=== PATIENT | male | born 1980 | race Caucasian/White ===

== ENCOUNTER → 2017-08-27 16:10 | Outpatient (CLI) | payer MEDICAID, SELFPAY ==
[2017-08-27 14:29] VITALS: BP 157/101; BMI 35.9
--- NOTE | 2017-08-27 16:13 | EKG12_ITS ---
Test Reason : PALPS Blood Pressure : / mmHG Vent. Rate : 069 BPM Atrial Rate : 069 BPM P-R Int : 164 ms QRS Dur : 092 ms QT Int : 406 ms P-R-T Axes : 041 -25 -03 degrees QTc Int : 435 ms Normal sinus rhythm Leftward axis Confirmed by SANTOSH CRUZ, LUCI ([id number]), editor continuity and script MARINO GALLARDO ([id number]) on 08/29/2017 1:56:24 PM Referred By: GIUSEPPE Confirmed By:LUCI FROST MD
[2017-08-27 17:15] LABS: Microalbumin,Random Urine 23.2 mg/L (NO RANGE EST.); Microalbumin:Creatinine Ratio 8.2 mg/g CRE (<30 mg/g CRE)
[2017-08-27 17:24] LABS: Hemoglobin A1c 5.7 % (4.2-6.3)
[2017-08-27 17:26] LABS: ALB/GLOB Ratio 1.2 RATIO (0.9-2.4); AST(SGOT) 17 U/L (15-37); Alanine Aminotransfer ALT/SGPT 37 U/L (16-61); Albumin, Serum 4.4 g/dL (3.2-5.0); Alkaline Phosphatase 82 U/L (45-117); Anion Gap 9 (5-15); BUN 13 mg/dL (7-18); BUN/Creat Ratio 13.3 RATIO (10-20); Calcium,Total 8.6 mg/dL (8.5-10.1); Chloride 105 mmol/L (98-107); Cholesterol 246 mg/dL (200); Creatinine, Serum 0.98 mg/dL (0.70-1.30); EST Glomerular Filtration Rate 91 mL/min (>60); Est Glom Filt Rate - Afr Amer 110 mL/min (>60); Globulin 3.7 g/dL (2.2-4.2); Glucose 101 mg/dL (74-106); High Density Lipoprotein 49 mg/dL; Protein, Total 8.1 g/dL (6.4-8.2); Sodium Level 139 mmol/L (136-145); Thyroid Stim Hormone (TSH) 0.94 uIU/mL (0.358-3.74); Triglycerides 208 mg/dL; Very Low Density Lipoprotein 42 mg/dL (5-40)
[2017-08-27 17:37] LABS: Absolute Lymphocyte Count 2.12 X10^3/ul (0.83-4.51); Absolute Neutrophil Count 5.3 X10^3/uL (2.0-7.7); Basophil# 0.05 X10^3/uL; Basophil% 0.6 % (0-1); Eosinophil# 0.09 X10^3/uL; Eosinophils% 1.1 % (0-5); Hematocrit 48.8 % (40-54); Hemoglobin 16.1 g/dl (13.0-16.5); Lymphocyte # 2.12 X10^3/ul (4.0); Lymphocyte % 25.9 % (19-41); Mean Corpuscular Hgb 27.5 pg (27.0-32.0); Mean Corpuscular Volume 83.3 fL (80-94); Mean Platelet Vol. 9.4 fl (6.2-12.0); Monocyte# 0.63 X10^3/uL; Monocyte% 7.7 % (0-10); Neutrophil # 5.25 X10^3/uL (2.7-7.7); Neutrophil % 64.3 % (47-70); Platelet Count 292 K/mm3 (150-450); RBC Distribution Width CV 12.8 % (11.6-14.6); RBC Distribution Width SD 38.2 fl (35.1-43.9); Red Blood Count 5.86 M/mm3 (4.6-6.2); White Blood Count 8.2 K/mm3 (4.4-11.0)
[2017-08-27 17:46] LABS: POSITIVE COUNT NO; POSITIVE DIFFERENTIAL NO; POSITIVE MORPHOLOGY NO
== END ==
LOC: RAD 16:11 → CVS 16:12
PROVIDERS: Family Provider Internal Medicine; PCP Internal Medicine; Visit Provider Nurse Practitioner Family
DX: Z13.1 Encounter for screening for diabetes mellitus (principal); I10 Essential (primary) hypertension; E66.9 Obesity, unspecified
CPT/HCPCS: 36415; 80053; 80061; 82043; 82570; 83036; 84443; 85025; 93005

== ENCOUNTER → 2020-06-21 15:47 | Outpatient (CLI) | payer MEDICAID, SELFPAY ==
[2020-06-21 12:38] VITALS: BMI 37.2
[2020-06-21 17:27] LABS: Absolute Lymphocyte Count 2.37 X10^3/uL (0.83-4.51); Absolute Neutrophil Count 5.3 X10^3/uL (2.0-7.7); Basophil# 0.05 X10^3/uL; Basophil% 0.6 % (0-1); Eosinophils% 1.2 % (0-5); Hematocrit 46.5 % (40-54); Lymphocyte # 2.37 X10^3/ul (4.0); Lymphocyte % 27.5 % (19-41); Mean Corp Hgb Conc 32.3 g/dL (32-36); Mean Corpuscular Hgb 27.2 pg (27.0-32.0); Mean Corpuscular Volume 84.2 fL (80-94); Monocyte# 0.76 X10^3/uL; Monocyte% 8.8 % (0-10); NRBC Flagged by Analyzer 0 % (0-5); Neutrophil # 5.27 X10^3/uL (2.7-7.7); Neutrophil % 61.1 % (47-70); Platelet Count 404 K/mm3 (150-450); RBC Distribution Width CV 12.1 % (11.6-14.6); RBC Distribution Width SD 36.6 fl (35.1-43.9); Red Blood Count 5.52 M/mm3 (4.6-6.2); White Blood Count 8.6 K/mm3 (4.4-11.0)
[2020-06-21 18:18] LABS: Vitamin D,25 Hydroxy 64.7 ng/mL
[2020-06-21 18:24] LABS: Anion Gap 5 (5-15); BUN 10 mg/dL (7-18); BUN/Creat Ratio 10.6 RATIO (10-20); Calcium,Total 9.6 mg/dL (8.5-10.1); Chloride 103 mmol/L (98-107); Creatinine, Serum 0.94 mg/dL (0.70-1.30); EST Glomerular Filtration Rate 94 mL/min (>60); Est Glom Filt Rate - Afr Amer 113 mL/min (>60); Glucose 100 mg/dL (74-106); Potassium 3.9 mmol/L (3.5-5.1); Sodium Level 137 mmol/L (136-145); Thyroid Stim Hormone (TSH) 1.15 uIU/mL (0.358-3.74)
== END ==
PROVIDERS: PCP Family Medicine; Visit Provider Internal Medicine Cardiovascular Disease
DX: I10 Essential (primary) hypertension (principal); E78.5 Hyperlipidemia, unspecified
CPT/HCPCS: 36415; 80048; 82306; 84443; 85025

== ENCOUNTER → 2020-06-30 10:55 | Outpatient (CLI) | payer MEDICAID, SELFPAY ==
[2020-06-21 12:38] VITALS: BMI 37.2
--- NOTE | 2020-06-30 10:59 | ECHOD_ITS ---
Reason For Study: ARRHYTHMIA Procedure This was a 2D Doppler, Color Flow transthoracic echocardiogram. Exam performed in department. Left Ventricle Normal LV size. Left ventricular systolic function is normal. The estimated ejection fraction is 60 %. No regional wall motion abnormalities noted. Right Ventricle Normal RV size. Normal systolic function. Atria Normal left atrium. Normal right atrium. Mitral Valve Normal mitral valve. Tricuspid Valve Normal tricuspid valve. Aortic Valve Normal aortic valve. Pulmonic Valve Normal pulmonic valve. Great Vessels Normal aortic root. The pulmonary artery is normal size. Normal inferior vena cava. Pericardium/Pleural No pericardial effusion. MMode/2D Measurements & Calculations LVIDd: 5.0 cm IVSd: 1.1 cm Ao root diam: 3.2 cm LVIDs: 3.6 cm LVPWd: 1.1 cm RVDd: 3.4 cm FS: 28.0 % LAV(MOD-bp): 42.6 ml LA A4 area: 15.2 cm2 LA dimension(2D): 3.6 cm LAV(MOD-bp) Indexed: 20.4 ml/m2 LAV(MOD-sp2): 42.1 ml LAV(MOD-sp4): 35.7 ml RA A4 area: 14.1 cm2 Time Measurements MV dec time: 0.24 sec Doppler Measurements & Calculations MV E max norberto: 86.6 cm/sec Lat Peak E' Norberto: 12.7 cm/sec Med Peak E' Norberto: 10.8 cm/sec MV A max norberto: 78.6 cm/sec E/E' lat: 6.8 E/E' med: 8.0 MV E/A: 1.1 Ao V2 max: 162.6 cm/sec LV V1 max: 120.7 cm/sec PA V2 max: 119.2 cm/sec Ao max P.6 mmHg LV V1 max P.8 mmHg Interpretation Summary Normal LV size. Left ventricular systolic function is normal. The estimated ejection fraction is 60 %. Structurally normal valves. Ordering Physician: Terrell Ryan Referring Physician: DESIRAE PCP Performed By: Princess Feliciano, SOLA, RVT
== END ==
PROVIDERS: Referring Provider Internal Medicine Cardiovascular Disease; Visit Provider Internal Medicine Cardiovascular Disease
DX: I10 Essential (primary) hypertension (principal)
CPT/HCPCS: 93306

== ENCOUNTER → 2020-11-23 08:39 | Outpatient (CLI) | payer MEDICAID, SELFPAY ==
[2020-06-21 12:38] VITALS: BMI 37.2
[2020-11-23 10:09] LABS: Absolute Lymphocyte Count 2.02 X10^3/uL (0.83-4.51); Absolute Neutrophil Count 3.8 X10^3/uL (2.0-7.7); Basophil# 0.09 X10^3/uL; Basophil% 1.3 % (0-1); Eosinophil# 0.09 X10^3/uL; Eosinophils% 1.3 % (0-5); Hemoglobin 16.6 g/dL (13.0-16.5); Lymphocyte # 2.02 X10^3/ul (0.83-4.51); Lymphocyte % 29.6 % (19-41); Mean Corp Hgb Conc 33.2 g/dL (32-36); Mean Corpuscular Hgb 27.6 pg (27.0-32.0); Mean Corpuscular Volume 83.2 fL (80-94); Mean Platelet Vol. 9.1 fl (6.2-12.0); Monocyte# 0.75 X10^3/uL; NRBC Flagged by Analyzer 0 % (0-5); Neutrophil # 3.82 X10^3/uL (2.7-7.7); Neutrophil % 56.1 % (47-70); Platelet Count 391 K/mm3 (150-450); RBC Distribution Width CV 12.1 % (11.6-14.6); RBC Distribution Width SD 36.6 fl (35.1-43.9); Red Blood Count 6.01 M/mm3 (4.6-6.2); White Blood Count 6.8 K/mm3 (4.4-11.0)
[2020-11-23 10:39] LABS: Anion Gap 5 (5-15); BUN 16 mg/dL (7-18); Calcium,Total 9.6 mg/dL (8.5-10.1); Chloride 100 mmol/L (98-107); EST Glomerular Filtration Rate 87 mL/min (>60); Est Glom Filt Rate - Afr Amer 105 mL/min (>60); Glucose 139 mg/dL (74-106); Potassium 4.1 mmol/L (3.5-5.1); Sodium Level 138 mmol/L (136-145)
[2020-11-28 15:06] LABS: Vitamin D 1,25-Dihydroxy 45.5 pg/mL (19.9-79.3)
== END ==
PROVIDERS: Referring Provider Physician Assistant Medical; Visit Provider Physician Assistant Medical
DX: I10 Essential (primary) hypertension (principal); E78.5 Hyperlipidemia, unspecified; E55.9 Vitamin D deficiency, unspecified
CPT/HCPCS: 36415; 80048; 82652; 85025

== ENCOUNTER → 2021-06-21 14:45 | Outpatient (CLI) | payer MEDICAID, SELFPAY ==
[2021-06-21 16:57] LABS: Vitamin D,25 Hydroxy 47.6 ng/mL
[2021-06-21 17:04] LABS: AST(SGOT) 26 U/L (15-37); Alanine Aminotransfer ALT/SGPT 69 U/L (16-61); Albumin, Serum 4.6 g/dL (3.2-5.0); Alkaline Phosphatase 84 U/L (45-117); Bilirubin, Direct 0.18 mg/dL (0.00-0.30); Cholesterol 252 mg/dL (200); Globulin 3.9 g/dL (2.2-4.2); High Density Lipoprotein 44 mg/dL; Protein, Total 8.5 g/dL (6.4-8.2); Thyroid Stim Hormone (TSH) 0.75 uIU/mL (0.358-3.74); Triglycerides 268 mg/dL; Very Low Density Lipoprotein 54 mg/dL (5-40)
== END ==
PROVIDERS: Visit Provider Internal Medicine Cardiovascular Disease
DX: E78.5 Hyperlipidemia, unspecified (principal); E78.00 Pure hypercholesterolemia, unspecified
CPT/HCPCS: 36415; 80061; 80076; 82306; 84443

== ENCOUNTER → 2021-07-11 12:31 | Outpatient (CLI) | payer MEDICAID, SELFPAY ==
--- NOTE | 2021-07-11 12:36 | CT_ITS ---
STUDY: CARDIAC CALCIUM SCORING - CT CHEST REASON FOR EXAM: Male, 41 years old. CAD RADIATION DOSAGE (If Supplied By Facility): CTDIvol = ( 12.19 ) mGy, DLP = ( 243.79 ) mGycm TECHNIQUE: Axial non-enhanced images were acquired through the heart for the sole purpose of measuring coronary artery calcium. Individualized dose optimization techniques were used for this CT. COMPARISON: None. FINDINGS: Visualized surrounding anatomy: 5 mm nodule in the left lower lobe. Fatty liver. Left Main Coronary Artery: 0 Left Anterior Descending Artery: 0 Left Circumflex Artery: 0 Right Coronary Artery: 0 Total Calcium Score: 0 CT/Limited Chest CT w/CCTA IMPRESSION: A Calcium Score of 0 places the patient in the approximate 25th percentile, based on the [employer] data calculator. 5 mm nodule in the left lower lobe. A dedicated chest CT is recommended. Fatty liver. Please go to: [email or web address].[email or web address] , for a description of the calculator. Electronically Signed: Alexei Wu MD at 16:05 EST Tel , Service support ,
[2021-07-11 12:40] VITALS: BP 134/86; PULSE 66; RESP 16; O2SAT 98; BMI 34.4
--- NOTE | 2021-07-11 17:37 | CA.SCORE ---
Calcium Scoring Coronary Calcium Scoring: High-resolution Computed Tomographic imaging of the chest was performed on [07/11/2021], with particular attention paid to the coronary arteries. Images from the examination were analyzed for the presence and extent of coronary artery calcification , using coronary calcium quantification software. The patient tolerated the procedure well and there were no complications. The results of the coronary calcification analysis are provided below. Left main 0 Left anterior descending artery 0 Left circumflex artery 0 Right coronary artery 0 Total Agatston score 0 Total percentile ranking 25%. The above is suggestive of no identifiable atherosclerotic plaquing. Calcium Scoring Interpretation: 0 No identifiable atherosclerotic plaque. Very low cardiovascular disease risk. <5% chance of presence coronary artery disease A Negative Examination 1-10 Minimal Plaque burden. Significant coronary artery disease very unlikely. 11-100 Mild plaque burden. Likely mild or minimal coronary atherosclerosis. 101-400 Moderate plaque burden Moderate non-obstructive coronary artery disease highly likely. Over 400 Extensive plaque burden. High likelihood of at least one significant coronary stenosis (>50% diameter)
== END ==
PROVIDERS: Referring Provider Internal Medicine Cardiovascular Disease; Visit Provider Internal Medicine Cardiovascular Disease
DX: R00.2 Palpitations (principal); E78.5 Hyperlipidemia, unspecified; F17.200 Nicotine dependence, unspecified, uncomplicated; I10 Essential (primary) hypertension; Z82.49 Family history of ischemic heart disease and other diseases of the circulatory system; I25.10 Atherosclerotic heart disease of native coronary artery without angina pectoris
CPT/HCPCS: 75571; 76380

== ENCOUNTER 2021-08-21 08:25 | Outpatient (CLI) | payer MEDICAID, SELFPAY ==
--- NOTE | 2021-08-21 08:28 | CT_ITS ---
STUDY: CT CHEST WITH CONTRAST REASON FOR EXAM: Male, 41 years old. Lung nodule -- 5 mm nodule in the left lower lobe. 07/11/21 RADIATION DOSAGE (If Supplied By Facility): CTDIvol = ( 12.58 ) mGy, DLP = ( 706.33 ) mGycm TECHNIQUE: Transaxial imaging was performed following intravenous administration of IV 100mL Isovue-370. Multiplanar coronal and sagittal images were reformatted. Individualized dose optimization techniques were used for this CT. COMPARISON: Comparison is made with prior CT cardiac calcium scoring examination dated 07/11/2021. FINDINGS: Small benign-appearing bilateral axillary lymph nodes. Stable 6 mm well-defined nodule in the peripheral lateral aspect of the left lower lobe as seen on axial image #54 . There is no demonstrated pleural abnormality. Normal heart and pericardium. Normal mediastinum. Normal hilar regions. Normal enhanced pulmonary arteries. Normal aorta arch and descending thoracic aorta. Normal osseous structures. There is no demonstrated abnormality of the visualized upper abdomen. CT/Chest WITH Contrast IMPRESSION: Stable 6 mm well-defined nodule in the peripheral lateral aspect of the left lower lobe as described. Six-month follow-up examination is recommended. Electronically Signed: Russel Novoa MD at 9:07 EST ,
[2021-08-21 08:41] LABS: CREATININE FINGERSTICK 0.8 mg/dL (0.70-1.30); EGFR FINGERSTICK > 60.0000 mL/min (>60)
== END 2021-08-21 23:59 | disposition short-term general hospital (02) ==
PROVIDERS: Referring Provider Internal Medicine Cardiovascular Disease; Visit Provider Internal Medicine Cardiovascular Disease
DX: R91.1 Solitary pulmonary nodule (principal)
CPT/HCPCS: 71260; Q9967

== ENCOUNTER → 2022-02-20 | Outpatient (CLI) | payer MEDICAID, SELFPAY ==
--- NOTE | 2022-02-20 07:35 | CT_ITS ---
EXAM: CT CHEST WITHOUT AND WITH INTRAVENOUS CONTRAST CLINICAL INDICATION: lung nodule f/u TECHNIQUE: Helically acquired images were obtained of the chest without and with intravenous contrast. This CT exam was performed using one or more of the following dose reduction techniques: automated exposure control, adjustment of the mA and/or kV according to patient size, and/or use of iterative reconstruction technique. This report was created using [employer] report generation technology. CONTRAST: IV 100mL Isovue-370 COMPARISON: None. FINDINGS: LUNGS AND PLEURAL SPACES: A well-defined 7 mm pulmonary nodule noted within the left lower lobe. Lungs are otherwise clear. No pleural effusion or thickening. No pneumothorax. HEART: Normal. Heart size is normal. No pericardial effusion. No significant coronary artery calcifications. MEDIASTINUM: Normal. No mediastinal or hilar adenopathy. Esophagus is unremarkable. No hiatal hernia. THYROID: Normal. No thyroid lesions. BONES/JOINTS: Normal. No suspicious lytic or blastic abnormality. VASCULATURE: Normal. Thoracic aorta is non-dilated. No thoracic aortic dissection. No obvious central pulmonary embolism although this study was not performed with the pulmonary embolism protocol. LIVER: Mild diffuse hepatic steatosis. CT/Chest W/WO Contrast IMPRESSION: 1. Stable 7 mm left lower lobe pulmonary nodule. Fleischner Society Guidelines (MacMahon, et al. Radiology 2017; 284(1):228-43) suggest the following. For low-risk patients consider a follow-up chest CT at 12-18 months. For high-risk patients (smoking history or other known risk factors) recommend follow-up chest CT at 12-18 months. If unchanged, no further follow-up. 2. Hepatic steatosis. Electronically Signed: Lalo Domingo MD at 9:31 EDT ,
[2022-02-20 08:00] LABS: EGFR FINGERSTICK > 60.0000 mL/min (>60)
== END | disposition home or self-care (01) ==
LOC: CT 07:34
PROVIDERS: Referring Provider Physician Assistant Medical; Visit Provider Physician Assistant Medical
DX: R91.1 Solitary pulmonary nodule (principal)
CPT/HCPCS: 71270; Q9967

== ENCOUNTER → 2022-07-04 | Outpatient (CLI) | payer MEDICAID, SELFPAY ==
[2022-07-04 12:55] LABS: Hematocrit 46.2 % (40-54); Hemoglobin 16.1 g/dL (13.0-16.5); Mean Corp Hgb Conc 34.8 g/dL (32-36); Mean Corpuscular Hgb 29.5 pg (27.0-32.0); Mean Corpuscular Volume 84.6 fL (80-94); Mean Platelet Vol. 9.3 fl (6.2-12.0); Platelet Count 335 K/mm3 (150-450); RBC Distribution Width CV 12.1 % (11.6-14.6); RBC Distribution Width SD 36.8 fl (35.1-43.9); Red Blood Count 5.46 M/mm3 (4.6-6.2); White Blood Count 6.7 K/mm3 (4.4-11.0)
[2022-07-04 13:26] LABS: Hemoglobin A1c 6.2 % (3.8-5.6)
[2022-07-04 13:32] LABS: ALB/GLOB Ratio 1.2 RATIO (0.9-2.4); AST(SGOT) 27 U/L (15-37); Alanine Aminotransfer ALT/SGPT 77 U/L (16-61); Albumin, Serum 4.5 g/dL (3.2-5.0); Alkaline Phosphatase 77 U/L (45-117); Anion Gap 8 (5-15); BUN 17 mg/dL (7-18); Calcium,Total 9.5 mg/dL (8.5-10.1); Chloride 100 mmol/L (98-107); EST Glomerular Filtration Rate 86 mL/min (>60); Est Glom Filt Rate - Afr Amer 105 mL/min (>60); Globulin 3.9 g/dL (2.2-4.2); Glucose 127 mg/dL (74-106); Potassium 3.7 mmol/L (3.5-5.1); Protein, Total 8.4 g/dL (6.4-8.2); Sodium Level 137 mmol/L (136-145)
[2022-07-04 13:35] LABS: Bilirubin, Direct 0.15 mg/dL (0.00-0.30); Cholesterol 214 mg/dL (200); High Density Lipoprotein 43 mg/dL; Triglycerides 159 mg/dL; Very Low Density Lipoprotein 32 mg/dL (5-40)
== END | disposition home or self-care (01) ==
LOC: LAB 10:13
PROVIDERS: Internal Medicine Cardiovascular Disease; Referring Provider Physician Assistant Medical; Visit Provider Physician Assistant Medical
DX: I10 Essential (primary) hypertension (principal); E78.5 Hyperlipidemia, unspecified
CPT/HCPCS: 36415; 80053; 80061; 82248; 83036; 85027

== ENCOUNTER → 2022-12-26 | Outpatient (CLI) | payer MEDICAID, SELFPAY ==
[2022-12-26 17:46] LABS: Absolute Lymphocyte Count 2.01 X10^3/uL (0.83-4.51); Basophil# 0.08 X10^3/uL; Eosinophil# 0.07 X10^3/uL; Eosinophils% 0.9 % (0-5); Hematocrit 49.2 % (40-54); Hemoglobin 16.3 g/dL (13.0-16.5); Lymphocyte # 2.01 X10^3/ul (0.83-4.51); Lymphocyte % 25.9 % (19-41); Mean Corp Hgb Conc 33.1 g/dL (32-36); Mean Corpuscular Hgb 28.6 pg (27.0-32.0); Mean Corpuscular Volume 86.5 fL (80-94); Mean Platelet Vol. 9.7 fl (6.2-12.0); Monocyte# 0.57 X10^3/uL; Monocyte% 7.3 % (0-10); NRBC Flagged by Analyzer 0 % (0-5); Neutrophil # 5.01 X10^3/uL (2.7-7.7); Neutrophil % 64.5 % (47-70); Platelet Count 335 K/mm3 (150-450); RBC Distribution Width CV 12.2 % (11.6-14.6); RBC Distribution Width SD 38.3 fl (35.1-43.9); Red Blood Count 5.69 M/mm3 (4.6-6.2); White Blood Count 7.8 K/mm3 (4.4-11.0)
[2022-12-26 17:49] LABS: Hemoglobin A1c 6.3 % (3.8-5.6)
[2022-12-26 18:20] LABS: AST(SGOT) 31 U/L (15-37); Alanine Aminotransfer ALT/SGPT 85 U/L (16-61); Albumin, Serum 4.2 g/dL (3.2-5.0); Alkaline Phosphatase 68 U/L (45-117); Anion Gap 7 (5-15); BUN 11 mg/dL (7-18); BUN/Creat Ratio 10.6 RATIO (10-20); Bilirubin, Direct 0.25 mg/dL (0.00-0.30); Calcium,Total 9.1 mg/dL (8.5-10.1); Chloride 103 mmol/L (98-107); Cholesterol 240 mg/dL (200); Creatinine, Serum 1.04 mg/dL (0.70-1.30); EST Glomerular Filtration Rate 82 mL/min (>60); Est Glom Filt Rate - Afr Amer 100 mL/min (>60); Globulin 3.6 g/dL (2.2-4.2); Glucose 174 mg/dL (74-106); High Density Lipoprotein 41 mg/dL; PSA,Total- Diagnostic 0.63 ng/mL (0.0-4.0); Potassium 3.4 mmol/L (3.5-5.1); Protein, Total 7.8 g/dL (6.4-8.2); Sodium Level 136 mmol/L (136-145); Thyroid Stim Hormone (TSH) 0.64 uIU/mL (0.358-3.74); Triglycerides 309 mg/dL; Very Low Density Lipoprotein 62 mg/dL (5-40)
== END | disposition home or self-care (01) ==
LOC: LAB 15:44
PROVIDERS: Visit Provider Internal Medicine Cardiovascular Disease
DX: I10 Essential (primary) hypertension (principal); E78.5 Hyperlipidemia, unspecified
CPT/HCPCS: 36415; 80048; 80061; 80076; 83036; 84153; 84443; 85025